=== PATIENT | male | born 1965 | race Caucasian/White ===

== ENCOUNTER 2016-08-14 20:07 | Emergency (ER) | payer OTHER ==
[~2016-08-14] VITALS: Ht 182.8 cm; Wt 83.9 kg
[~2016-08-14 20:07] MED LIST: ANTIVERT/2525 M1 PO; ASPIRIN81 M1 PO; B-1100 M1 PO; CLARITIN-D 12 H1 TAB PO; FLEXERIL10 MG PO; FLONASE 0.05% 121 EA NAS; FOLIC ACID1 MG PO; HYDROCODONE BIT1 T11 PO; LEVAQUIN750 M1 PO; MEDROL DOSEPAK4 MG PO; MOTRIN800 MG PO; MULTIVITAMIN1 CTB PO; NKHM; PREDNISONE10 MG PO; PREDNISONE20 M1 PO; PROAIR HFA8.5 GM INH; VIBRAMYCIN100 MG PO; VICODIN 5/500 505 MG PO; VITAMIN B-11 TAB PO; ZOLOFT25 MG PO
[2016-08-14 21:47] LABS: BILIRUBIN NEGATIVE (NEGATIVE); BLOOD NEGATIVE (NEGATIVE); CLARITY SL CLOUDY (CLEAR); COLOR YELLOW (YELLOW); GLUCOSE NEGATIVE (NEGATIVE); KETONE NEGATIVE (NEGATIVE); LEUKO ESTERASE NEGATIVE (NEGATIVE); NITRITE NEGATIVE (NEGATIVE); PROTEIN NEGATIVE (NEGATIVE); SPECIFIC GRAVITY <= 1.005 (1.005-1.030); UROBILINOGEN 0.2 E.U./dl (0.2-1.0)
[2016-08-14 21:54] LABS: BASO # 0.1 10*3/uL (0.0-0.1); BASO % 0.7 % (0.0-1.0); EOS % 0.1 % (1.0-4.0); HEMATOCRIT 45.5 % (42.0-52.0); HEMOGLOBIN 15.4 g/dl (14.0-18.0); LYMPH % 21.1 % (27.0-41.0); MEAN CELL VOLUME 95.4 fl (80.0-94.0); MEAN CORPUSCULAR HGB 32.3 pg (27.0-31.0); MEAN CORPUSCULAR HGB CONC 33.8 g/dl (33.0-37.0); MEAN PLATELET VOLUME 9.3 fl (9.6-12.3); MONO # 1.2 10*3/uL (0.1-1.0); MONO % 13.2 % (3.0-9.0); NEUT % 64.7 % (47.0-73.0); PLATELET COUNT AUTOMATED 324 10*3/uL (130-400); RED BLOOD COUNT 4.77 10*6/uL (4.50-5.90); RED CELL DISTRI WIDTH 13.6 % (0-14.5); WHITE BLOOD COUNT 9.2 10*3/uL (4.8-10.8)
[2016-08-14 21:59] LABS: BACTERIA 1+; EPITHELIAL CELLS 0-2; RBC 0-2 rbc/hpf (0-2); URINE REFLEX COMMENT NO (NO); WBC 0-2 wbc/hpf (0-5)
[2016-08-14 22:10] LABS: ALBUMIN 4.1 gm/dl (3.1-4.5); ALKALINE PHOSPHATASE 76 U/L (45-117); BILIRUBIN, DIRECT 0.1 mg/dL (0.0-0.2); BILIRUBIN, TOTAL 0.3 mg/dl (0.2-1.0); BUN 16 mg/dl (7-24); CARBON DIOXIDE 22 mmol/L (21-32); CHLORIDE 104 mmol/L (98-107); EST GLOM FILT AFRICAN AMERICAN > 60 ml/min; GLUCOSE 81 mg/dL (65-99); POTASSIUM 3.7 mmol/L (3.5-5.1); SGOT/AST 119 IU/L (3-35); SGPT/ALT 269 U/L (12-78); SODIUM 138 mmol/L (136-145); TOTAL PROTEIN 8.5 gm/dL (6.4-8.2)
== END 2016-08-15 02:52 | disposition short-term general hospital (02) ==
LOC: ED 20:07
PROVIDERS: Emergency Medicine
DX: M54.5 Low back pain (principal); F17.200 Nicotine dependence, unspecified, uncomplicated; Z90.89 Acquired absence of other organs; Z88.0 Allergy status to penicillin; Z79.899 Other long term (current) drug therapy

== ENCOUNTER 2016-09-09 11:46 | Emergency (ER) | payer OTHER ==
[~2016-09-09] VITALS: Ht 182.8 cm; Wt 83.9 kg
[2016-09-09 12:51] LABS: BASO # 0.1 10*3/uL (0.0-0.1); BASO % 0.7 % (0.0-1.0); EOS # 0.1 10*3/uL (0.0-0.4); EOS % 0.8 % (1.0-4.0); HEMATOCRIT 43.2 % (42.0-52.0); HEMOGLOBIN 14.3 g/dl (14.0-18.0); LYMPH # 2.5 10*3/uL (1.3-4.4); LYMPH % 34.9 % (27.0-41.0); MEAN CORPUSCULAR HGB 31.8 pg (27.0-31.0); MEAN CORPUSCULAR HGB CONC 33.1 g/dl (33.0-37.0); MEAN PLATELET VOLUME 9.6 fl (9.6-12.3); MONO # 0.7 10*3/uL (0.1-1.0); NEUT # 3.8 10*3/uL (2.3-7.9); NEUT % 53.3 % (47.0-73.0); PLATELET COUNT AUTOMATED 350 10*3/uL (130-400); RED CELL DISTRI WIDTH 13.1 % (0-14.5); WHITE BLOOD COUNT 7.1 10*3/uL (4.8-10.8)
[2016-09-09 13:10] LABS: BILIRUBIN NEGATIVE (NEGATIVE); BLOOD NEGATIVE (NEGATIVE); CLARITY CLEAR (CLEAR); COLOR YELLOW (YELLOW); GLUCOSE NEGATIVE (NEGATIVE); KETONE NEGATIVE (NEGATIVE); LEUKO ESTERASE NEGATIVE (NEGATIVE); NITRITE NEGATIVE (NEGATIVE); PH 5.5 (5.0-9.0); PROTEIN NEGATIVE (NEGATIVE); SPECIFIC GRAVITY 1.025 (1.005-1.030); UROBILINOGEN 0.2 E.U./dl (0.2-1.0)
[2016-09-09 13:10] LABS: ALBUMIN 3.7 gm/dl (3.1-4.5); BUN 11 mg/dl (7-24); CARBON DIOXIDE 29 mmol/L (21-32); CHLORIDE 106 mmol/L (98-107); EST GLOM FILT AFRICAN AMERICAN > 60 ml/min; GLUCOSE 130 mg/dL (65-99); SGOT/AST 65 IU/L (3-35); SGPT/ALT 128 U/L (12-78); SODIUM 143 mmol/L (136-145); TOTAL PROTEIN 8.2 gm/dL (6.4-8.2)
[2016-09-09 13:16] LABS: ALKALINE PHOSPHATASE 70 U/L (45-117); BILIRUBIN, TOTAL 0.2 mg/dl (0.2-1.0)
[2016-09-09 13:24] LABS: EPITHELIAL CELLS 0-2; MUCOUS 2+; URINE REFLEX COMMENT NO (NO); WBC 0-2 wbc/hpf (0-5)
[2016-09-09] MEDS ORDERED: CLINDAMYCIN HC300 MG PO (13:39)
== END 2016-09-09 14:27 | disposition home or self-care (01) ==
LOC: ED 11:46
PROVIDERS: Registered Nurse
DX: K08.89 Other specified disorders of teeth and supporting structures (principal); B19.20 Unspecified viral hepatitis C without hepatic coma; M54.5 Low back pain; F17.200 Nicotine dependence, unspecified, uncomplicated; Z88.0 Allergy status to penicillin

== ENCOUNTER → 2016-09-15 | Outpatient (CLI) | payer OTHER ==
[~2016-09-15] MED LIST changes: +CLINDAMYCIN HC300 MG PO
== END | disposition home or self-care (01) ==
LOC: RESCLI 01:28
DX: B18.2 Chronic viral hepatitis C (principal); R39.198 Other difficulties with micturition; J44.9 Chronic obstructive pulmonary disease, unspecified; Z72.0 Tobacco use; Z90.81 Acquired absence of spleen

== ENCOUNTER 2016-09-30 23:43 | Emergency (ER) | payer OTHER ==
[~2016-09-30] VITALS: Ht 182.8 cm; Wt 96.6 kg
--- NOTE | ~2016-09-30 | EKG ---
[place], [place] ELECTROCARDIOGRAM REPORT NAME: KYLEE RHODES UNIT #: [id number] ROOM: DOCTOR: SOURAV GROVES MD BIRTHDATE: [birth year] DOS: 09/30/2016 TIME: 2359 hours. Normal sinus rhythm at 95 beats per minute. The tracing is normal. No previous tracing is available for comparison. SOURAV GROVES MD CM:EKGRPT:ELECTROCARDIOGRAM REPORT 06 0005 SOURAV GROVES MD
[2016-10-01 00:10] LABS: BASO # 0.1 10*3/uL (0.0-0.1); BASO % 0.8 % (0.0-1.0); EOS # 0.1 10*3/uL (0.0-0.4); EOS % 1.7 % (1.0-4.0); HEMATOCRIT 43.1 % (42.0-52.0); HEMOGLOBIN 14.3 g/dl (14.0-18.0); LYMPH % 42.4 % (27.0-41.0); MEAN CELL VOLUME 98.2 fl (80.0-94.0); MEAN CORPUSCULAR HGB 32.6 pg (27.0-31.0); MEAN CORPUSCULAR HGB CONC 33.2 g/dl (33.0-37.0); MEAN PLATELET VOLUME 9.7 fl (9.6-12.3); MONO # 0.7 10*3/uL (0.1-1.0); MONO % 10.3 % (3.0-9.0); NEUT # 3.2 10*3/uL (2.3-7.9); NEUT % 44.7 % (47.0-73.0); PLATELET COUNT AUTOMATED 332 10*3/uL (130-400); RED BLOOD COUNT 4.39 10*6/uL (4.50-5.90); RED CELL DISTRI WIDTH 14.2 % (0-14.5); WHITE BLOOD COUNT 7.1 10*3/uL (4.8-10.8)
[2016-10-01 00:20] LABS: PROTHROMBIN TIME 10.4 SECONDS (9.0-12.4)
[2016-10-01 00:21] LABS: URINE AMPHETAMINES < 1000 (1000ng/ml); URINE BARBITURATES < 200 (200ng/ml); URINE COCAINE < 300 (300ng/ml)
[2016-10-01 00:27] LABS: ALBUMIN 3.7 gm/dl (3.1-4.5); ALKALINE PHOSPHATASE 68 U/L (45-117); BILIRUBIN, TOTAL 0.2 mg/dl (0.2-1.0); BUN 12 mg/dl (7-24); CARBON DIOXIDE 28 mmol/L (21-32); CHLORIDE 108 mmol/L (98-107); EST GLOM FILT AFRICAN AMERICAN > 60 ml/min; GLUCOSE 139 mg/dL (65-99); SGOT/AST 75 IU/L (3-35); SGPT/ALT 95 U/L (12-78); SODIUM 143 mmol/L (136-145); TOTAL PROTEIN 8.3 gm/dL (6.4-8.2)
[2016-10-01 00:28] LABS: TROPONIN I < 0.015 ng/ml (<0.045)
== END 2016-10-01 01:27 | disposition home or self-care (01) ==
LOC: ED 23:43
PROVIDERS: Student in an Organized Health Care Education/Training Program
DX: T40.1X1A Poisoning by heroin, accidental (unintentional), initial encounter (principal); F10.129 Alcohol abuse with intoxication, unspecified; F17.200 Nicotine dependence, unspecified, uncomplicated; I25.10 Atherosclerotic heart disease of native coronary artery without angina pectoris; J44.1 Chronic obstructive pulmonary disease with (acute) exacerbation; I25.2 Old myocardial infarction; Z90.89 Acquired absence of other organs; Z88.0 Allergy status to penicillin; Y92.9 Unspecified place or not applicable

== ENCOUNTER → 2016-11-11 | Outpatient (CLI) | payer OTHER | END | disposition home or self-care (01) | LOC: RESCLI 00:26 | DX: Z01.818 Encounter for other preprocedural examination (principal); B18.2 Chronic viral hepatitis C; J43.9 Emphysema, unspecified; I25.10 Atherosclerotic heart disease of native coronary artery without angina pectoris; I11.0 Hypertensive heart disease with heart failure; I50.32 Chronic diastolic (congestive) heart failure; I25.2 Old myocardial infarction; E66.3 Overweight; Z72.0 Tobacco use; Z88.0 Allergy status to penicillin ==

== ENCOUNTER 2017-02-25 22:23 | Emergency (ER) | payer SELFPAY ==
[~2017-02-25] VITALS: Ht 182.8 cm; Wt 90.7 kg
[2017-02-25] MEDS ORDERED: ZYRTEC10 MG PO (22:38)
[2017-02-25] MEDS ORDERED: ZITHROMAX250 MG PO (22:38)
== END 2017-02-25 22:37 | disposition home or self-care (01) ==
LOC: ED 22:23
DX: H65.01 Acute serous otitis media, right ear (principal); F17.200 Nicotine dependence, unspecified, uncomplicated; Z88.0 Allergy status to penicillin

== ENCOUNTER 2017-06-28 16:26 | Emergency (ER) | payer OTHER ==
[~2017-06-28] VITALS: Ht 182.8 cm; Wt 90.7 kg
[~2017-06-28 16:26] MED LIST changes: +ZITHROMAX250 MG PO; +ZYRTEC10 MG PO
== END 2017-06-28 18:31 | disposition home or self-care (01) ==
LOC: ED 16:26
DX: S50.01XA Contusion of right elbow, initial encounter (principal); F17.200 Nicotine dependence, unspecified, uncomplicated; I10 Essential (primary) hypertension; I25.10 Atherosclerotic heart disease of native coronary artery without angina pectoris; I25.2 Old myocardial infarction; Z90.89 Acquired absence of other organs; Z98.890 Other specified postprocedural states; Z79.899 Other long term (current) drug therapy; Z88.0 Allergy status to penicillin; Y04.0XXA Assault by unarmed brawl or fight, initial encounter; Y93.89 Activity, other specified; Y92.89 Other specified places as the place of occurrence of the external cause; Y99.9 Unspecified external cause status

== ENCOUNTER 2018-09-07 14:24 | Inpatient (IN) | payer MEDICAID ==
[~2018-09-07] VITALS: Ht 182.9 cm; Wt 84.8 kg
--- NOTE | ~2018-09-07 | EKG ---
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
--- NOTE | ~2018-09-07 | EKG ---
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
--- NOTE | ~2018-09-07 | EKG ---
[place], [place] ELECTROCARDIOGRAM REPORT NAME: KYLEE RHODES UNIT #: [id number] ROOM: 519 DOCTOR: EPIPHANY DRAFT REPORT BIRTHDATE: [birth year] [facility] Test Date: 2018-09-07 Test Time: 14:34:47 Pat Name: KYLEE RHODES Department: Room: 519 Gender: M Jira Administrator: : 1965 Requested By: KAREN KIM Order Number: [id number] Reading MD: Janeth Huber MD Measurements Intervals [place] Rate: 87 P: 50 [place]: 146 QRS: 43 QRSD: 94 T: 63 QT: 371 QTc: 447 Interpretive Statements Sinus rhythm ST elev, probable normal early repol pattern No previous ECG available for comparison Electronically Signed On 09-08-2018 12:33:26 PDT by Janeth Huber MD CM:EKGRPT:ELECTROCARDIOGRAM REPORT 1434 1233 KAREN KIM EPIPHANY DRAFT REPORT KAREN KIM
--- NOTE | ~2018-09-07 | ST ---
[place], [place] EXERCISE STRESS TEST REPORT NAME: KYLEE RHODES UNIT #: [id number] ROOM: 519 DOCTOR: ODALYS SANCHES MD BIRTHDATE: [birth year] DOS: 09/08/2018 EXERCISE TREADMILL STRESS TEST ALONG WITH PERFUSION SCAN IMAGING REFERRING PHYSICIAN: Dr. Luna. INDICATION: Central chest pain. The patient underwent standard Harvey protocol exercise treadmill stress testing. Baseline EKG is normal sinus with a heart rate of 71 with a blood pressure of 108/62. The patient's peak heart rate was 152 with a blood pressure of 140/68. The patient had no chest pain, no ischemic changes, no arrhythmias. The patient achieved a peak heart rate of 152, which represents 90% of maximum predicted. The patient exercised for 6 minutes achieving peak exercise level of 7 METS. SUMMARY OF FINDINGS: 1. Negative exercise treadmill stress test. 2. [place]wood Treadmill score is 6, portending a low risk prognosis. 3. Please see separate report for perfusion imaging results. ODALYS SANCHES MD CM:STRESS:EXERCISE STRESS TEST REPORT [id number] 1755 ODALYS SANCHES MD
[2018-09-07 14:27] VITALS: BP 115/74
--- NOTE | 2018-09-07 14:31 | NUR ---
PATIENT LATER STATES THAT HE DID HAVE CHEST PAIN IN THE MIDDLE OF HIS CHEST. HEADACHE AND NAUSEA THIS MORNING. PREVIOUS HISTORY OF FL IN 2011.
[2018-09-07 14:43] LABS: BASO # 0.1 10*3/uL (0.0-0.1); BASO % 0.7 % (0.0-1.0); EOS % 0.3 % (1.0-4.0); HEMATOCRIT 46.9 % (42.0-52.0); HEMOGLOBIN 15.7 g/dl (14.0-18.0); LYMPH # 1.6 10*3/uL (1.3-4.4); MEAN CELL VOLUME 99.4 fl (80.0-94.0); MEAN CORPUSCULAR HGB 33.3 pg (27.0-31.0); MEAN CORPUSCULAR HGB CONC 33.5 g/dl (33.0-37.0); MONO # 0.7 10*3/uL (0.1-1.0); MONO % 5.6 % (3.0-9.0); NEUT # 9.9 10*3/uL (2.3-7.9); NEUT % 80.1 % (47.0-73.0); PLATELET COUNT AUTOMATED 288 10*3/uL (130-400); RED BLOOD COUNT 4.72 10*6/uL (4.50-5.90); RED CELL DISTRI WIDTH 13.2 % (0-14.5); WHITE BLOOD COUNT 12.4 10*3/uL (4.8-10.8)
[2018-09-07 15:00] LABS: ALBUMIN 3.4 gm/dl (3.1-4.5); ALKALINE PHOSPHATASE 77 U/L (45-117); BUN 10 mg/dl (7-24); CHLORIDE 104 mmol/L (98-107); CREATININE 1.08 mg/dL (0.70-1.30); POTASSIUM 4.1 mmol/L (3.5-5.1); SGOT/AST 63 IU/L (3-35); SGPT/ALT 143 U/L (12-78); SODIUM 137 mmol/L (136-145); TOTAL PROTEIN 8.1 gm/dL (6.4-8.2)
[2018-09-07 15:03] LABS: TROPONIN I < 0.015 ng/ml (<0.045)
--- NOTE | 2018-09-07 15:07 | NUR ---
REPORT GIVEN TO ELINA BROWN.
[2018-09-07 15:14] VITALS: BP 114/74
[2018-09-07 16:00] VITALS: BP 112/82
[2018-09-07 16:11] VITALS: BP 113/73
--- NOTE | 2018-09-07 16:36 | NUR ---
PT TO CT SCAN NO DISTRESS NOTED
--- NOTE | 2018-09-07 16:46 | NUR ---
PT HAVING SEVERE NECK PAIN NOW GRISELDA BRODY NOTIFIED
[2018-09-07 16:48] VITALS: BP 111/78
--- NOTE | 2018-09-07 17:20 | NUR ---
A 52, admitted to 5E, under the services of NAVID Jesus DO with a diagnosis of CHEST PAIN . Chief complaint is CHEST , NECK, SHOULDER PAIN . Patient arrived via stretcher from ER. Monitor applied. Initial assessment completed. Vital signs taken and recorded. NAVID JESUS DO notified of admission to the unit. Orders received. See assessment for past medical history, medications and allergies. Patient and/or family oriented to unit. [facility] visitation policy reviewed. Clothing/patient valuable form completed. ROMINA MCFARLANE
[2018-09-07 20:00] VITALS: BP 127/71
--- NOTE | 2018-09-07 22:13 | NUR ---
DR SALAZAR NOTIFIED OF PATIENT COMPLAINTS OF INCREASING NECK/BACK AND CHEST PAIN. PATIENT STATES THIS PAIN IN NO DIFFERENT THAN THE TYPE OF PAIN THAT BROUGHT HIM IN. HE STATES THAT IT IS JUST INCREASING NOW RATING 8 OR 9 OUT OF 10. SPOKE [address] SALAZAR REGARDING PATIENT COMPLAINTS. PER DR SALAZAR PLACE ONE TIME DOSE OF TORADOL 15MG NOW. OTHERWISE NO FURTHER ORDERS AT THIS TIME. WILL CONTINUE TO MONITOR.
[2018-09-08] VITALS: BP 123/74
--- NOTE | 2018-09-08 01:42 | NUR ---
RESTING IN BED WITH EYES CLOSED. RESPIRATIONS ARE EASY AND REGULAR. NO DISTRESS IS NOTED. CALL LIGHT IS WITHIN REACH. WILL MONITOR.
[2018-09-08 06:33] LABS: ALKALINE PHOSPHATASE 84 U/L (45-117); BUN 15 mg/dl (7-24); CHLORIDE 106 mmol/L (98-107); CHOLESTEROL 88 mg/dL (<200); CREATININE 0.88 mg/dL (0.70-1.30); HDL CHOLESTEROL 38 mg/dl (40-60); LDL CHOLESTEROL 39 mg/dL (9-159); PHOSPHOROUS 3.5 mg/dL (2.5-4.9); POTASSIUM 3.6 mmol/L (3.5-5.1); SGOT/AST 48 IU/L (3-35); SGPT/ALT 116 U/L (12-78); SODIUM 141 mmol/L (136-145); TRIGLYCERIDES 54 mg/dl (<150); VLDL CHOLESTEROL 11 mg/dL (6-40)
[2018-09-08 06:39] LABS: BASO # 0.1 10*3/uL (0.0-0.1); BASO % 0.8 % (0.0-1.0); EOS # 0.1 10*3/uL (0.0-0.4); EOS % 1.1 % (1.0-4.0); HEMATOCRIT 45.5 % (42.0-52.0); HEMOGLOBIN 15.1 g/dl (14.0-18.0); LYMPH # 2.5 10*3/uL (1.3-4.4); MEAN CELL VOLUME 98.3 fl (80.0-94.0); MEAN CORPUSCULAR HGB 32.6 pg (27.0-31.0); MEAN CORPUSCULAR HGB CONC 33.2 g/dl (33.0-37.0); MEAN PLATELET VOLUME 10.6 fl (9.6-12.3); MONO % 12.2 % (3.0-9.0); NEUT # 4.3 10*3/uL (2.3-7.9); NEUT % 54.6 % (47.0-73.0); PLATELET COUNT AUTOMATED 288 10*3/uL (130-400); RED BLOOD COUNT 4.63 10*6/uL (4.50-5.90); RED CELL DISTRI WIDTH 13.2 % (0-14.5); WHITE BLOOD COUNT 7.9 10*3/uL (4.8-10.8)
[2018-09-08 06:40] LABS: THYROID STIM HORMONE (HS) 0.422 uIU/ml (0.358-4.75)
[2018-09-08 08:00] VITALS: BP 118/78
--- NOTE | 2018-09-08 08:32 | NUR ---
PT RETING IN BED. NO DISTRESS NOTED/ WILL MONITOR
--- NOTE | 2018-09-08 11:22 | NUR ---
Elevator Constructor Hydraulic in to talk to patient. Patient states lives at HOME with ALONE. There are NO steps in the home. Physician: NONE Pharmacy: [facility] Home health services: NONE Patient's level of ADLs: INDEPENDENT Patient has working utilities: YES DME: NONE Follow-up physician's appointment after d/c: WILL FIND ONE AND MAKE APPOINTMENT AFTER DISCHARGE Does patient want to access PORTAL?: NO Discharge plan PT LIVES AT HOME ALONE AND INDEPENDENT IN HIS CARE. DENIES HOME NEEDS ON DISCHARGE. WILL CONTINUE TO FOLLOW. STATES HE WILL HAVE A RIDE HOME WHEN DISCHARGED.. ARIE CARRILLO
--- NOTE | 2018-09-08 11:30 | NUR ---
INFORMED CONSENT OBTAINED FOR AN EXERCISE CARDIOLITE STRESS TEST WITH DR. SANCHES. RESTING EKG NSR WITH A HR OF 71 AND BP OF 108/62. AND A HR OF 95 WITH A BP OF 104/76 IN STANDING POSITION. PT COMPLETED 6:00 MINUTES OF A CHERRI PROTOCOL WITH COMPLETION OF STAGE II AT 2.5 MPH AND 12% GRADE. REACHED A PEAK HT RT OF 152 WHICH IS 90% OF PREDICATED MAX WITH A PEAK BP OF 140/68. TEST TERMINATED DUE TO FATIGUE. VOICED CHEST PRESSURE AT AN INTERVAL OF 1:20 OF RECOVERY THAT WAS VOICED 2/10. COMPLETELY RESOLVED BY THE END OF RECOVERY. HAS A FAIR EXERCISE TOLERANCE. LAST RECOVERY HT RT OF 116 WITH A BP OF 114/78. TAKEN TO NUCLEAR IMAGING IN STABLE CONDITION.
[2018-09-08 12:00] VITALS: BP 119/67
--- NOTE | 2018-09-08 15:39 | NUR ---
PT RESTING IN BED. NO DISTRESS NOTED. NO VOICED C/O. LILIAN MONITOR
[2018-09-08 16:00] VITALS: BP 124/78
--- NOTE | 2018-09-08 18:20 | NUR ---
Discharge instructions reviewed with patient/family. Patient receptive and verbalizes understanding. Follow-up care arranged. Written instructions given to patient/family. ROMINA MCFARLANE
== END 2018-09-08 18:20 | disposition home or self-care (01) | DRG 551 ==
LOC: ED 14:24 → 5E 16:11 → EDHOLD 16:11 → 5E 16:49
PROVIDERS: Nurse Practitioner Family; Student in an Organized Health Care Education/Training Program; ADMIT Internal Medicine
PROC: 3E033HZ Introduction of Radioactive Substance into Peripheral Vein, Percutaneous Approach (ICD-10-PCS; principal; 2018-09-08)
PROC: 4A02XM4 Measurement of Cardiac Total Activity, External Approach (ICD-10-PCS; principal; 2018-09-08)
DX: M47.22 Other spondylosis with radiculopathy, cervical region (principal); J18.9 Pneumonia, unspecified organism; R65.10 Systemic inflammatory response syndrome (SIRS) of non-infectious origin without acute organ dysfunction; E44.0 Moderate protein-calorie malnutrition; F41.9 Anxiety disorder, unspecified; K21.9 Gastro-esophageal reflux disease without esophagitis; M94.0 Chondrocostal junction syndrome [Tietze]; E66.3 Overweight; R73.9 Hyperglycemia, unspecified; H81.10 Benign paroxysmal vertigo, unspecified ear; I10 Essential (primary) hypertension; F12.20 Cannabis dependence, uncomplicated; J43.9 Emphysema, unspecified; N40.0 Benign prostatic hyperplasia without lower urinary tract symptoms; B18.2 Chronic viral hepatitis C; F17.210 Nicotine dependence, cigarettes, uncomplicated; Z71.6 Tobacco abuse counseling; Z68.25 Body mass index [BMI] 25.0-25.9, adult; Z88.0 Allergy status to penicillin; Z79.2 Long term (current) use of antibiotics; Z79.899 Other long term (current) drug therapy

== ENCOUNTER 2019-03-17 16:56 | Emergency (ER) | payer OTHER ==
[~2019-03-17] VITALS: Ht 182.8 cm; Wt 90.7 kg
== END 2019-03-17 19:34 | disposition home or self-care (01) ==
LOC: ED 16:56
DX: S16.1XXA Strain of muscle, fascia and tendon at neck level, initial encounter (principal); M54.12 Radiculopathy, cervical region; E11.9 Type 2 diabetes mellitus without complications; I25.2 Old myocardial infarction; J44.9 Chronic obstructive pulmonary disease, unspecified; F17.200 Nicotine dependence, unspecified, uncomplicated; Z90.49 Acquired absence of other specified parts of digestive tract; Z88.0 Allergy status to penicillin; X50.0XXA Overexertion from strenuous movement or load, initial encounter; Y93.89 Activity, other specified; Y92.89 Other specified places as the place of occurrence of the external cause; Y99.8 Other external cause status

== ENCOUNTER 2019-05-22 22:51 | Emergency (ER) | payer OTHER ==
[~2019-05-22] VITALS: Ht 182.8 cm; Wt 90.7 kg
[2019-05-22 23:53] LABS: BASO # 0.1 10*3/uL (0.0-0.1); BASO % 1.1 % (0.0-1.0); EOS # 0.1 10*3/uL (0.0-0.4); EOS % 1.8 % (1.0-4.0); HEMATOCRIT 39.2 % (42.0-52.0); LYMPH # 2.8 10*3/uL (1.3-4.4); LYMPH % 42.7 % (27.0-41.0); MEAN CORPUSCULAR HGB 32.8 pg (27.0-31.0); MEAN CORPUSCULAR HGB CONC 33.2 g/dl (33.0-37.0); MEAN PLATELET VOLUME 9.7 fl (9.6-12.3); MONO # 0.9 10*3/uL (0.1-1.0); MONO % 13.2 % (3.0-9.0); NEUT # 2.7 10*3/uL (2.3-7.9); PLATELET COUNT AUTOMATED 348 10*3/uL (130-400); RED BLOOD COUNT 3.96 10*6/uL (4.50-5.90); RED CELL DISTRI WIDTH 13.3 % (0-14.5); WHITE BLOOD COUNT 6.6 10*3/uL (4.8-10.8)
[2019-05-22 23:53] LABS: BILIRUBIN NEGATIVE (NEGATIVE); BLOOD NEGATIVE (NEGATIVE); CLARITY CLEAR (CLEAR); COLOR YELLOW (YELLOW); GLUCOSE NEGATIVE (NEGATIVE); KETONE NEGATIVE (NEGATIVE); LEUKO ESTERASE NEGATIVE (NEGATIVE); NITRITE NEGATIVE (NEGATIVE); SPECIFIC GRAVITY >= 1.030 (1.005-1.030); UROBILINOGEN 0.2 E.U./dl (0.2-1.0)
[2019-05-23 00:09] LABS: BACTERIA TRACE; MUCOUS 1+
[2019-05-23 00:11] LABS: ACT PARTIAL THROMBO TIME 26.1 SECONDS (20.0-32.1); INTERNATIONAL NORM RATIO 0.9 (2.0-3.5)
[2019-05-23 00:13] LABS: TROPONIN I 0.036 ng/ml (<0.045)
[2019-05-23 00:15] LABS: ALBUMIN 3.6 gm/dl (3.1-4.5); ALKALINE PHOSPHATASE 92 U/L (45-117); BUN 13 mg/dl (7-24); CHLORIDE 109 mmol/L (98-107); CREATININE 0.78 mg/dL (0.70-1.30); LIPASE 160 U/L (73-393); POTASSIUM 4.1 mmol/L (3.5-5.1); SGOT/AST 66 IU/L (3-35); SGPT/ALT 124 U/L (12-78); SODIUM 143 mmol/L (136-145); TOTAL PROTEIN 7.8 gm/dL (6.4-8.2)
== END 2019-05-23 10:28 | disposition short-term general hospital (02) ==
LOC: ED 22:51
PROVIDERS: Nurse Practitioner Family
DX: G91.2 (Idiopathic) normal pressure hydrocephalus (principal); R27.8 Other lack of coordination; R15.9 Full incontinence of feces; R53.1 Weakness; I10 Essential (primary) hypertension; J44.9 Chronic obstructive pulmonary disease, unspecified; E11.9 Type 2 diabetes mellitus without complications; I25.2 Old myocardial infarction; F17.210 Nicotine dependence, cigarettes, uncomplicated; Z88.0 Allergy status to penicillin